=== PATIENT | female | born 1970 | race Caucasian/White ===

== ENCOUNTER 2022-11-10 12:11 | Emergency (ER) | payer OTHER ==
[~2022-11-10] VITALS: Ht 154.9 cm; Wt 94.1 kg
[2022-11-10 12:16] VITALS: BP 156/91
--- NOTE | 2022-11-10 12:22 | NUR ---
PT AMB TO BED 8
--- NOTE | 2022-11-10 12:35 | NUR ---
MD VALLECILLO AT BEDSIDE
[2022-11-10] MEDS ORDERED: PRED20TA5 PO (12:44)
[2022-11-10] MEDS ORDERED: ACYC400T14 PO (12:44)
--- NOTE | 2022-11-10 12:50 | NUR ---
Patient discharged with v/s stable. Written and verbal after care instructions given and explained. Patient verbalized understanding. Ambulatory with steady gait. All questions addressed prior to discharge. Advised to follow up with PMD.
== END 2022-11-10 12:49 | disposition home or self-care (01) ==
LOC: MED 12:11
DX: G51.0 Bell's palsy (principal); I10 Essential (primary) hypertension
CPT/HCPCS: 99283

== ENCOUNTER 2023-04-07 11:37 | Day surgery (SDC) | payer OTHER ==
[~2023-04-07] VITALS: Ht 157.5 cm; Wt 90.7 kg
[~2023-04-07 11:37] MED LIST: ACYC400T14 PO; PRED20TA5 PO
[2023-04-07] MEDS ORDERED: fentaNYL citrate 0.05 MG/ML VIAL ONE (12:55)
[2023-04-07] MEDS ORDERED: LIDOCAINE 2% 100 MG/5 ML UJET TP ONE (12:55)
[2023-04-07] MEDS ORDERED: MIDAZOLAM 5 MG/5 ML VIAL ONE (12:55)
[2023-04-07] MEDS ORDERED: fentaNYL citrate 0.05 MG/ML VIAL IVP ONE (14:20)
[2023-04-07] MEDS ORDERED: MIDAZOLAM 2 MG/2 ML VIAL IVP ONE (14:20)
== END 2023-04-07 14:01 | disposition home or self-care (01) ==
LOC: MDS 11:37 → MMU 11:38 → MDS 14:01
PROVIDERS: ATTEND Internal Medicine Gastroenterology
DX: Z12.11 Encounter for screening for malignant neoplasm of colon (principal); D12.2 Benign neoplasm of ascending colon; I10 Essential (primary) hypertension; E78.5 Hyperlipidemia, unspecified; G51.0 Bell's palsy; Z98.51 Tubal ligation status; Z79.899 Other long term (current) drug therapy
CPT/HCPCS: 45385; J2250; J3010